=== PATIENT | female | born 1965 | race Caucasian/White ===

== ENCOUNTER 2021-12-31 21:09 | Emergency (ER) | payer SELFPAY ==
[2021-12-31] MEDS ORDERED: WELLBUTRIN XL150 M2 (21:40)
[2021-12-31 22:11] LABS: URINE APPEARANCE CLOUDY; URINE COLOR ORANGE
[2021-12-31 22:12] LABS: URINE GLUCOSE NEGATIVE (NEGATIVE); URINE KETONE NEGATIVE (NEGATIVE); URINE PROTEIN(semi-quant) 3+ (NEGATIVE)
[2021-12-31 22:13] LABS: URINE BILIRUBIN 3+ (NEGATIVE); URINE BLOOD 250 ery/uL (NEGATIVE); URINE LEUKOCYTE ESTERASE 2+ (NEGATIVE); URINE NITRATE NEGATIVE (NEGATIVE); URINE UROBILINOGEN 12 mg/dL (NORMAL)
[2021-12-31] MEDS ORDERED: MACROBID 100 M100 MG PO (22:27)
[2021-12-31 22:44] VITALS: BP 137/87
[2022-01-01 01:00] LABS: URINE WBC 31-50 /hpf (0-3)
== END 2021-12-31 22:46 | disposition home or self-care (01) ==
LOC: ED 21:09
PROVIDERS: Nurse Practitioner Family
DX: N39.0 Urinary tract infection, site not specified (principal); Z87.442 Personal history of urinary calculi

== ENCOUNTER → 2023-04-03 | Outpatient (CLI) | payer OTHER ==
[~2023-04-03] MED LIST: DITROPAN 5MG TAB5 MG PO; MACROBID 100 M100 MG PO; WELLBUTRIN XL150 M2
== END ==
LOC: LAB 11:23
DX: C54.1 Malignant neoplasm of endometrium (principal); Z80.0 Family history of malignant neoplasm of digestive organs

== ENCOUNTER 2023-04-24 13:58 | Outpatient (RCR) | payer OTHER ==
[~2023-04-24] VITALS: Ht 152.4 cm; Wt 78.3 kg
[2023-04-27 11:05] VITALS: BP 121/70
--- NOTE | 2023-04-27 11:40 | NUR ---
ATTEMPTED TO ACCESS LEFT CHEST PORT X 3 WITHOUT SUCCESS. DIFFICULT TO PALPATE PORT BORDER. PT REPORTS THAT [facility] HAD [facility]OUBLE WITH [facility] PORT WELL. LAB DRAW PERIPHERALLY.
== END 2023-04-29 | disposition home or self-care (01) ==
LOC: AMSURD
DX: C54.1 Malignant neoplasm of endometrium (principal)

== ENCOUNTER → 2023-04-27 | Outpatient (CLI) | payer OTHER ==
[2023-04-27 11:59] LABS: HEMOGLOBIN 13.2 g/dL (12.5-16.0); MEAN CELL VOLUME 85 fl (78-100); MEAN CORPUSCULAR HEMOGLOBIN 27 pg (27-31); MEAN CORPUSCULAR HGB CONC 32 g/dL (33-37); MEAN PLATELET VOLUME 9.2 fl (7.4-10.4); PLATELET COUNT 213 K/mm3 (130-400); RED BLOOD COUNT 4.82 M/mm3 (4.10-5.30)
[2023-04-27 12:03] LABS: ALBUMIN 3.9 g/dL (3.5-5.0)
[2023-04-27 12:06] LABS: TOTAL PROTEIN 6.5 g/dL (6.4-8.3)
[2023-04-27 12:08] LABS: TOTAL BILIRUBIN 0.2 mg/dL (0.2-1.2)
[2023-04-27 12:09] LABS: WHITE BLOOD COUNT 1.9 K/mm3 (4.8-10.8)
[2023-04-27 12:39] LABS: BAND 3 % (0-10); LYMPHOCYTE 45 % (20-51); MONOCYTE 32 % (3-10); NEUTROPHILS 12 % (42-75)
[2023-04-27 13:22] LABS: MAGNESIUM 2.12 mg/dL (1.60-2.60)
== END ==
LOC: LAB 10:41
PROVIDERS: Internal Medicine
DX: C54.1 Malignant neoplasm of endometrium (principal)

== ENCOUNTER → 2023-05-04 | Outpatient (CLI) | payer OTHER ==
[2023-05-04 11:57] LABS: BASO # 0.02 K/mm3 (0.02-0.10); HEMATOCRIT 43.7 % (37.0-47.0); LYMPH# 1.19 K/mm3 (1.50-4.00); MEAN CELL VOLUME 86 fl (78-100); MEAN CORPUSCULAR HEMOGLOBIN 27 pg (27-31); MEAN CORPUSCULAR HGB CONC 32 g/dL (33-37); MEAN PLATELET VOLUME 8.6 fl (7.4-10.4); MONO # 0.49 K/mm3 (0.20-0.80); NEU # 3.04 K/mm3 (1.40-6.50); PLATELET COUNT 169 K/mm3 (130-400); RED BLOOD COUNT 5.11 M/mm3 (4.10-5.30); RED CELL DISTRIBUTION WIDTH 13.4 % (11.5-14.5); WHITE BLOOD COUNT 4.9 K/mm3 (4.8-10.8)
[2023-05-04 12:08] LABS: ALBUMIN 4.2 g/dL (3.5-5.0)
[2023-05-04 12:11] LABS: TOTAL PROTEIN 6.9 g/dL (6.4-8.3)
[2023-05-04 12:13] LABS: TOTAL BILIRUBIN 0.3 mg/dL (0.2-1.2)
[2023-05-04 12:18] LABS: MAGNESIUM 2.38 mg/dL (1.60-2.60)
== END ==
LOC: LAB 11:31 → EDSTATUS 11:33
PROVIDERS: Internal Medicine
DX: C54.1 Malignant neoplasm of endometrium (principal)

== ENCOUNTER → 2023-06-25 | Outpatient (CLI) | payer OTHER ==
[2023-06-25 11:51] LABS: HEMATOCRIT 41.2 % (37.0-47.0); HEMOGLOBIN 13.3 g/dL (12.5-16.0); MEAN CELL VOLUME 86 fl (78-100); MEAN CORPUSCULAR HEMOGLOBIN 28 pg (27-31); MEAN CORPUSCULAR HGB CONC 32 g/dL (33-37); PLATELET COUNT 99 K/mm3 (130-400); RED BLOOD COUNT 4.78 M/mm3 (4.10-5.30); RED CELL DISTRIBUTION WIDTH 14.3 % (11.5-14.5)
[2023-06-25 11:59] LABS: CALCIUM 9.2 mg/dL (8.3-10.5)
[2023-06-25 12:00] LABS: TOTAL PROTEIN 6.6 g/dL (6.4-8.3)
[2023-06-25 12:02] LABS: TOTAL BILIRUBIN 0.3 mg/dL (0.2-1.2)
[2023-06-25 12:06] LABS: MAGNESIUM 1.92 mg/dL (1.60-2.60)
[2023-06-25 12:23] LABS: WHITE BLOOD COUNT 0.8 K/mm3 (4.8-10.8)
[2023-06-25 12:35] LABS: LYMPHOCYTE 47 % (20-51); MONOCYTE 1 % (3-10); NEUTROPHILS 46 % (42-75)
== END ==
LOC: LAB 11:33
PROVIDERS: Internal Medicine
DX: C54.1 Malignant neoplasm of endometrium (principal)

== ENCOUNTER → 2023-07-12 | Outpatient (CLI) | payer OTHER ==
[2023-07-12 13:51] LABS: BASO # 0.02 K/mm3 (0.02-0.10); EOS # 0.02 K/mm3 (0.04-0.40); EOS % 0.4 % (1.0-5.0); HEMATOCRIT 36.6 % (37.0-47.0); HEMOGLOBIN 11.7 g/dL (12.5-16.0); LYMPH# 0.76 K/mm3 (1.50-4.00); MEAN CELL VOLUME 87 fl (78-100); MEAN CORPUSCULAR HEMOGLOBIN 28 pg (27-31); MEAN CORPUSCULAR HGB CONC 32 g/dL (33-37); MEAN PLATELET VOLUME 9.4 fl (7.4-10.4); MONO # 0.06 K/mm3 (0.20-0.80); NEU # 4.59 K/mm3 (1.40-6.50); PLATELET COUNT 192 K/mm3 (130-400); RED BLOOD COUNT 4.22 M/mm3 (4.10-5.30); RED CELL DISTRIBUTION WIDTH 16.4 % (11.5-14.5); WHITE BLOOD COUNT 5.5 K/mm3 (4.8-10.8)
[2023-07-12 14:07] LABS: ALBUMIN 3.8 g/dL (3.5-5.0)
[2023-07-12 14:09] LABS: CALCIUM 8.5 mg/dL (8.3-10.5)
[2023-07-12 14:10] LABS: TOTAL PROTEIN 6.4 g/dL (6.4-8.3)
[2023-07-12 14:12] LABS: TOTAL BILIRUBIN 0.3 mg/dL (0.2-1.2)
[2023-07-12 14:17] LABS: MAGNESIUM 2.04 mg/dL (1.60-2.60)
== END ==
LOC: LAB 13:32
PROVIDERS: Internal Medicine
DX: C54.1 Malignant neoplasm of endometrium (principal)

== ENCOUNTER → 2023-07-19 | Outpatient (CLI) | payer OTHER ==
[2023-07-19 14:00] LABS: ALBUMIN 4.1 g/dL (3.5-5.0)
[2023-07-19 14:01] LABS: CALCIUM 9.4 mg/dL (8.3-10.5)
[2023-07-19 14:03] LABS: TOTAL PROTEIN 6.6 g/dL (6.4-8.3)
[2023-07-19 14:04] LABS: TOTAL BILIRUBIN 0.3 mg/dL (0.2-1.2)
[2023-07-19 14:10] LABS: MAGNESIUM 1.96 mg/dL (1.60-2.60)
[2023-07-19 14:21] LABS: HEMATOCRIT 35.8 % (37.0-47.0); HEMOGLOBIN 11.7 g/dL (12.5-16.0); MEAN CELL VOLUME 86 fl (78-100); MEAN CORPUSCULAR HEMOGLOBIN 28 pg (27-31); MEAN CORPUSCULAR HGB CONC 33 g/dL (33-37); MEAN PLATELET VOLUME 9.5 fl (7.4-10.4); PLATELET COUNT 140 K/mm3 (130-400); RED BLOOD COUNT 4.18 M/mm3 (4.10-5.30); RED CELL DISTRIBUTION WIDTH 15.6 % (11.5-14.5)
[2023-07-19 14:54] LABS: WHITE BLOOD COUNT 0.8 K/mm3 (4.8-10.8)
[2023-07-19 15:19] LABS: URINE APPEARANCE SLIGHTLY CLOUDY (CLEAR); URINE COLOR YELLOW (YELLOW)
[2023-07-19 15:20] LABS: PH-URINE 6.5 (5.0 - 8.0); URINE BILIRUBIN NEGATIVE (NEGATIVE); URINE BLOOD NEGATIVE (NEGATIVE); URINE GLUCOSE NEGATIVE (NEGATIVE); URINE KETONE NEGATIVE (NEGATIVE); URINE LEUKOCYTE ESTERASE 1+ (NEGATIVE); URINE NITRATE NEGATIVE (NEGATIVE); URINE PROTEIN(semi-quant) NEGATIVE (NEGATIVE)
[2023-07-19 15:22] LABS: URINE MUCUS PRESENT (NOT PRESENT)
[2023-07-19 18:00] LABS: LYMPHOCYTE 53 % (20-51); MONOCYTE 12 % (3-10); NEUTROPHILS 22 % (42-75)
[2023-07-19 18:02] LABS: ROULEAUX 1+
== END ==
LOC: LAB 13:25
PROVIDERS: Internal Medicine
DX: C54.1 Malignant neoplasm of endometrium (principal)

== ENCOUNTER → 2023-07-23 | Outpatient (CLI) | payer OTHER ==
[2023-07-23 15:53] LABS: HEMATOCRIT 39.1 % (37.0-47.0); HEMOGLOBIN 12.1 g/dL (12.5-16.0); MEAN CELL VOLUME 90 fl (78-100); MEAN CORPUSCULAR HEMOGLOBIN 28 pg (27-31); MEAN CORPUSCULAR HGB CONC 31 g/dL (33-37); MEAN PLATELET VOLUME 9.4 fl (7.4-10.4); PLATELET COUNT 115 K/mm3 (130-400); RED BLOOD COUNT 4.36 M/mm3 (4.10-5.30); RED CELL DISTRIBUTION WIDTH 18.1 % (11.5-14.5)
[2023-07-23 16:02] LABS: CALCIUM 9.6 mg/dL (8.3-10.5)
[2023-07-23 16:03] LABS: TOTAL PROTEIN 6.7 g/dL (6.4-8.3)
[2023-07-23 16:05] LABS: PROTHROMBIN TIME 11.6 SECONDS (9.0-12.0); TOTAL BILIRUBIN 0.3 mg/dL (0.2-1.2)
[2023-07-23 16:10] LABS: MAGNESIUM 1.95 mg/dL (1.60-2.60)
[2023-07-23 16:30] LABS: BAND 3 % (0-10); NEUTROPHILS 27 % (42-75)
[2023-07-23 16:31] LABS: METAMYELOCYTE 2 % (0-0); MONOCYTE 26 % (3-10); NUCLEATED RED BLOOD CELL 2 (0-6)
[2023-07-23 16:32] LABS: LYMPHOCYTE 32 % (20-51)
[2023-07-23 16:33] LABS: MYELOCYTE 2 % (0-0)
== END ==
LOC: LAB 15:20
PROVIDERS: Internal Medicine
DX: C54.1 Malignant neoplasm of endometrium (principal)

== ENCOUNTER → 2023-08-09 | Outpatient (CLI) | payer OTHER ==
[2023-08-09 14:57] LABS: BASO # 0.01 K/mm3 (0.02-0.10); EOS # 0.16 K/mm3 (0.04-0.40); EOS % 4.9 % (1.0-5.0); HEMATOCRIT 38.8 % (37.0-47.0); HEMOGLOBIN 12.5 g/dL (12.5-16.0); LYMPH# 0.81 K/mm3 (1.50-4.00); MEAN CELL VOLUME 90 fl (78-100); MEAN CORPUSCULAR HEMOGLOBIN 29 pg (27-31); MEAN CORPUSCULAR HGB CONC 32 g/dL (33-37); MEAN PLATELET VOLUME 8.5 fl (7.4-10.4); MONO # 0.32 K/mm3 (0.20-0.80); NEU # 1.98 K/mm3 (1.40-6.50); PLATELET COUNT 200 K/mm3 (130-400); RED BLOOD COUNT 4.33 M/mm3 (4.10-5.30); RED CELL DISTRIBUTION WIDTH 17.9 % (11.5-14.5); WHITE BLOOD COUNT 3.3 K/mm3 (4.8-10.8)
[2023-08-09 15:03] LABS: CALCIUM 9.4 mg/dL (8.3-10.5)
[2023-08-09 15:04] LABS: TOTAL PROTEIN 6.4 g/dL (6.4-8.3)
[2023-08-09 15:06] LABS: TOTAL BILIRUBIN 0.3 mg/dL (0.2-1.2)
[2023-08-09 15:11] LABS: MAGNESIUM 2.05 mg/dL (1.60-2.60)
== END ==
LOC: LAB 14:40
PROVIDERS: Internal Medicine
DX: C54.1 Malignant neoplasm of endometrium (principal)

== ENCOUNTER → 2023-08-31 | Outpatient (CLI) | payer OTHER ==
[2023-08-31 11:35] LABS: BASO # 0.01 K/mm3 (0.02-0.10); EOS # 0.06 K/mm3 (0.04-0.40); EOS % 1.7 % (1.0-5.0); LYMPH# 0.72 K/mm3 (1.50-4.00); MEAN CELL VOLUME 89 fl (78-100); MEAN CORPUSCULAR HEMOGLOBIN 29 pg (27-31); MEAN CORPUSCULAR HGB CONC 33 g/dL (33-37); MEAN PLATELET VOLUME 8.7 fl (7.4-10.4); MONO # 0.49 K/mm3 (0.20-0.80); NEU # 2.21 K/mm3 (1.40-6.50); PLATELET COUNT 143 K/mm3 (130-400); RED BLOOD COUNT 4.48 M/mm3 (4.10-5.30); RED CELL DISTRIBUTION WIDTH 15.8 % (11.5-14.5); WHITE BLOOD COUNT 3.5 K/mm3 (4.8-10.8)
[2023-08-31 11:41] LABS: ALBUMIN 4.1 g/dL (3.5-5.0)
[2023-08-31 11:42] LABS: CALCIUM 9.3 mg/dL (8.3-10.5)
[2023-08-31 11:45] LABS: TOTAL BILIRUBIN 0.3 mg/dL (0.2-1.2)
[2023-08-31 11:50] LABS: MAGNESIUM 2.11 mg/dL (1.60-2.60)
== END ==
LOC: LAB 11:20
PROVIDERS: Internal Medicine
DX: C54.1 Malignant neoplasm of endometrium (principal)

== ENCOUNTER → 2023-09-21 | Outpatient (CLI) | payer OTHER ==
[2023-11-13 11:29] LABS: ALBUMIN 4.1 g/dL (3.5-5.0); CALCIUM 9.1 mg/dL (8.3-10.5); MAGNESIUM 1.92 mg/dL (1.60-2.60); TOTAL BILIRUBIN 0.3 mg/dL (0.2-1.2); TOTAL PROTEIN 6.9 g/dL (6.4-8.3)
[2023-11-13 11:34] LABS: HEMATOCRIT 36.3 % (37.0-47.0); HEMOGLOBIN 11.7 g/dL (12.5-16.0); MEAN CELL VOLUME 91 fl (78-100); MEAN CORPUSCULAR HEMOGLOBIN 30 pg (27-31); MEAN CORPUSCULAR HGB CONC 32 g/dL (33-37); MEAN PLATELET VOLUME 8.9 fl (7.4-10.4); PLATELET COUNT 142 K/mm3 (130-400); RED BLOOD COUNT 3.97 M/mm3 (4.10-5.30); RED CELL DISTRIBUTION WIDTH 16.5 % (11.5-14.5); WHITE BLOOD COUNT 2.3 K/mm3 (4.8-10.8)
[2023-11-13 11:37] LABS: LYMPHOCYTE 18 % (20-51); MONOCYTE 12 % (3-10); NEUTROPHILS 69 % (42-75)
== END ==
LOC: LAB 09-18 08:00
PROVIDERS: Internal Medicine
DX: C54.1 Malignant neoplasm of endometrium (principal)

== ENCOUNTER → 2023-11-05 | Outpatient (CLI) | payer OTHER ==
[2023-11-05 13:54] LABS: ALBUMIN 4.1 g/dL (3.5-5.0)
[2023-11-05 13:56] LABS: CALCIUM 9.3 mg/dL (8.3-10.5)
[2023-11-05 13:57] LABS: TOTAL PROTEIN 6.9 g/dL (6.4-8.3)
[2023-11-05 13:59] LABS: TOTAL BILIRUBIN 0.3 mg/dL (0.2-1.2)
[2023-11-05 14:03] LABS: MAGNESIUM 2.05 mg/dL (1.60-2.60)
[2023-11-05 14:54] LABS: EOS # 0.12 K/mm3 (0.04-0.40); HEMATOCRIT 41.3 % (37.0-47.0); HEMOGLOBIN 13.3 g/dL (12.5-16.0); LYMPH# 0.72 K/mm3 (1.50-4.00); MEAN CELL VOLUME 93 fl (78-100); MEAN CORPUSCULAR HEMOGLOBIN 30 pg (27-31); MEAN CORPUSCULAR HGB CONC 32 g/dL (33-37); MEAN PLATELET VOLUME 9.2 fl (7.4-10.4); MONO # 0.21 K/mm3 (0.20-0.80); NEU # 1.94 K/mm3 (1.40-6.50); PLATELET COUNT 174 K/mm3 (130-400); RED BLOOD COUNT 4.44 M/mm3 (4.10-5.30); RED CELL DISTRIBUTION WIDTH 14.2 % (11.5-14.5)
== END ==
LOC: LAB 13:33
PROVIDERS: Internal Medicine
DX: C54.1 Malignant neoplasm of endometrium (principal)

== ENCOUNTER → 2023-12-04 | Outpatient (CLI) | payer OTHER ==
[~2023-12-04] VITALS: Ht 152.4 cm; Wt 78.3 kg
[2023-12-04 13:02] VITALS: BP 130/74
--- NOTE | 2023-12-04 13:22 | NUR ---
PT HAD PORT PLACED IN LEFT CHEST YESTERDAY, 12/03/23. SHE HAD THEM LEAVE PORT ACCESSED THINKING SHE WAS TO RECEIVE HER IMMUNOTHERAPY TODAY. BUT LATER FOUND OUT HER APPT IS NOT FOR 2 MORE WEEKS. COMES IN TODAY TO HAVE PORT FLUSHED AND DEACCESSED. BRISK BLOOD RETURN ASPIRATED FROM PORT. FLUSHED WITH 10 ML NS AND 500 UNITS HEPLOCK. DEACCESSED PORTACATH NEEDLE WITHOUT ANY DIFFICULTY. CLEANED SOME DRIED BLOOD FROM AROUND PORT SITE AND APPLIED BANDAID OVER PREVIOUS ACCESS SITE. LEFT FACILITY AMBULATORY. VSS
== END ==
LOC: AMSURD 12:46
DX: C54.1 Malignant neoplasm of endometrium (principal)
CPT/HCPCS: J1644

== ENCOUNTER → 2023-12-14 | Outpatient (CLI) | payer OTHER ==
[2023-12-14 15:34] LABS: EOS # 0.19 K/mm3 (0.04-0.40); EOS % 4.3 % (1.0-5.0); HEMATOCRIT 39.7 % (37.0-47.0); MEAN CELL VOLUME 90 fl (78-100); MEAN CORPUSCULAR HEMOGLOBIN 29 pg (27-31); MEAN CORPUSCULAR HGB CONC 33 g/dL (33-37); MEAN PLATELET VOLUME 9.1 fl (7.4-10.4); MONO # 0.32 K/mm3 (0.20-0.80); NEU # 3.01 K/mm3 (1.40-6.50); PLATELET COUNT 171 K/mm3 (130-400); RED BLOOD COUNT 4.42 M/mm3 (4.10-5.30); RED CELL DISTRIBUTION WIDTH 13.8 % (11.5-14.5); WHITE BLOOD COUNT 4.4 K/mm3 (4.8-10.8)
[2023-12-14 15:41] LABS: ALBUMIN 4.1 g/dL (3.5-5.0)
[2023-12-14 15:42] LABS: CALCIUM 9.3 mg/dL (8.3-10.5)
[2023-12-14 15:45] LABS: TOTAL BILIRUBIN 0.3 mg/dL (0.2-1.2)
[2023-12-14 15:50] LABS: MAGNESIUM 2.05 mg/dL (1.60-2.60)
== END ==
LOC: LAB 14:54
PROVIDERS: Internal Medicine
DX: C54.1 Malignant neoplasm of endometrium (principal)

== ENCOUNTER → 2024-01-24 | Outpatient (CLI) | payer OTHER ==
[2024-01-24 16:32] VITALS: BP 120/72
[2024-01-24 16:39] VITALS: BP 120/74
[2024-01-24 16:39] LABS: BASO # 0.01 K/mm3 (0.02-0.10); EOS # 0.17 K/mm3 (0.04-0.40); EOS % 3.9 % (1.0-5.0); HEMATOCRIT 38.2 % (37.0-47.0); HEMOGLOBIN 12.5 g/dL (12.5-16.0); LYMPH# 0.84 K/mm3 (1.50-4.00); MEAN CELL VOLUME 88 fl (78-100); MEAN CORPUSCULAR HEMOGLOBIN 29 pg (27-31); MEAN CORPUSCULAR HGB CONC 33 g/dL (33-37); MEAN PLATELET VOLUME 8.9 fl (7.4-10.4); MONO # 0.28 K/mm3 (0.20-0.80); PLATELET COUNT 147 K/mm3 (130-400); RED BLOOD COUNT 4.35 M/mm3 (4.10-5.30); RED CELL DISTRIBUTION WIDTH 13.1 % (11.5-14.5); WHITE BLOOD COUNT 4.4 K/mm3 (4.8-10.8)
[2024-01-24 16:43] LABS: ALBUMIN 3.9 g/dL (3.5-5.0)
[2024-01-24 16:46] LABS: TOTAL PROTEIN 6.6 g/dL (6.4-8.3)
[2024-01-24 16:47] LABS: TOTAL BILIRUBIN 0.3 mg/dL (0.2-1.2)
[2024-01-24 16:52] LABS: MAGNESIUM 1.96 mg/dL (1.60-2.60)
== END ==
LOC: LAB 15:38
PROVIDERS: Internal Medicine
DX: C54.1 Malignant neoplasm of endometrium (principal)

== ENCOUNTER → 2024-04-29 | Outpatient (CLI) | payer OTHER ==
[~2024-04-29] MED LIST changes: +NS 50 ML IV ONE
[2024-04-29 17:28] LABS: BASO # 0.01 K/mm3 (0.02-0.10); EOS % 4.6 % (1.0-5.0); HEMOGLOBIN 13.4 g/dL (12.5-16.0); MEAN CELL VOLUME 88 fl (78-100); MEAN CORPUSCULAR HEMOGLOBIN 28 pg (27-31); MEAN CORPUSCULAR HGB CONC 32 g/dL (33-37); MONO # 0.39 K/mm3 (0.20-0.80); NEU # 2.65 K/mm3 (1.40-6.50); PLATELET COUNT 174 K/mm3 (130-400); RED BLOOD COUNT 4.78 M/mm3 (4.10-5.30); RED CELL DISTRIBUTION WIDTH 14.2 % (11.5-14.5); WHITE BLOOD COUNT 4.4 K/mm3 (4.8-10.8)
[2024-04-29 17:37] LABS: CALCIUM 8.8 mg/dL (8.3-10.5)
[2024-04-29 17:38] LABS: TOTAL PROTEIN 6.4 g/dL (6.4-8.3)
[2024-04-29 17:40] LABS: TOTAL BILIRUBIN 0.3 mg/dL (0.2-1.2)
[2024-04-29 17:44] LABS: MAGNESIUM 2.34 mg/dL (1.60-2.60)
--- NOTE | 2024-04-29 17:53 | NUR ---
lab reported critical glucose of 59. contacted patient. pt left here and ate a meal. pt reports feeling fine. dr jameson notified.
== END ==
LOC: AMSURD 16:08 → LAB 16:08
PROVIDERS: Internal Medicine
DX: C54.1 Malignant neoplasm of endometrium (principal)

== ENCOUNTER → 2024-06-25 | Outpatient (CLI) | payer OTHER ==
[~2024-06-25] VITALS: Ht 152.4 cm; Wt 81.0 kg
[~2024-06-25] MED LIST changes: -NS 50 ML IV ONE
[2024-06-25 12:19] VITALS: BP 136/81
--- NOTE | 2024-06-25 12:20 | NUR ---
LEFT CHEST PORTACATH ACCESSED BY Roshan HOANG RN. FLUSHED EASILY AND BLOOD DRAWN FOR LABS. SOME DIFFICULTY DRAWING BLOOD. PORT SEEMS POSITIONAL. FLUSHED WITH 10ML NS AND 5ML HEPLOCK, THEN DEACCESSED PORT. NO BLEEDING AT SITE. BANDAID APPLIED.
[2024-06-25 12:43] LABS: BASO # 0.01 K/mm3 (0.02-0.10); EOS # 0.15 K/mm3 (0.04-0.40); EOS % 3.5 % (1.0-5.0); HEMATOCRIT 42.6 % (37.0-47.0); HEMOGLOBIN 13.6 g/dL (12.5-16.0); LYMPH# 0.88 K/mm3 (1.50-4.00); MEAN CELL VOLUME 88 fl (78-100); MEAN CORPUSCULAR HEMOGLOBIN 28 pg (27-31); MEAN CORPUSCULAR HGB CONC 32 g/dL (33-37); MEAN PLATELET VOLUME 9.4 fl (7.4-10.4); MONO # 0.35 K/mm3 (0.20-0.80); NEU # 2.83 K/mm3 (1.40-6.50); PLATELET COUNT 158 K/mm3 (130-400); RED BLOOD COUNT 4.86 M/mm3 (4.10-5.30); RED CELL DISTRIBUTION WIDTH 14.5 % (11.5-14.5); WHITE BLOOD COUNT 4.2 K/mm3 (4.8-10.8)
[2024-06-25 12:55] LABS: ALBUMIN 3.7 g/dL (3.5-5.0)
[2024-06-25 12:56] LABS: CALCIUM 8.8 mg/dL (8.3-10.5)
[2024-06-25 12:58] LABS: TOTAL PROTEIN 6.5 g/dL (6.4-8.3)
[2024-06-25 12:59] LABS: TOTAL BILIRUBIN 0.2 mg/dL (0.2-1.2)
[2024-06-25 13:05] LABS: MAGNESIUM 2.13 mg/dL (1.60-2.60)
== END ==
LOC: LAB 11:46
PROVIDERS: Internal Medicine
DX: C54.1 Malignant neoplasm of endometrium (principal)